=== PATIENT | female | born 1990 | race Caucasian/White ===

== ENCOUNTER → 2020-01-23 | Outpatient (CLI) | payer OTHER ==
--- NOTE | 2020-01-23 16:58 | RAD ---
EXAM: CT Maxillofacial without IV contrast INDICATION: Right eye pain and headache for one week. TECHNIQUE: Multi-detector row CT images were obtained through the maxillofacial region without the use of IV contrast. Post-processing reconstructed images were obtained for interpretation. All CT scans performed at this facility utilize dose optimization techniques as appropriate to the exam, including the following: Automated exposure control and adjustment of the mA and/or KV according to patient size (this includes techniques or standardized protocols for targeted exams where dose is indication/reason for exam). COMPARISON: None FINDINGS: OSSEOUS: No evidence of fracture or bone destruction. VISUALIZED INTRACRANIAL STRUCTURES: Unremarkable. ORBITS: Orbital contents are unremarkable.. SINUSES: Opacification of the right frontal sinus is present along with the mucous retention cyst or polyp in the right maxillary antrum. The paranasal sinuses otherwise are clear. SOFT TISSUES: Unremarkable. IMPRESSION: Sinus mucosal disease involving the right frontal and right maxillary sinuses. No air-fluid levels to suggest acute sinusitis. No bony destructive changes. Electronically signed by: Ashli Yuen MD (01/23/2020 4:55 PM) [id number]
== END | disposition home or self-care (01) ==
LOC: CT 11:19
DX: J32.8 Other chronic sinusitis (principal); J34.89 Other specified disorders of nose and nasal sinuses
CPT/HCPCS: 70486